=== PATIENT | female | born 1980 | race Caucasian/White ===

== ENCOUNTER 2017-05-21 11:06 | Emergency (ER) | payer OTHER ==
[~2017-05-21] VITALS: Ht 165.1 cm; Wt 112.0 kg
[~2017-05-21 11:06] MED LIST: GABA300C5 PO; IBUP-232 PO; LISI-519 PO; LOVA10TA PO; METF850T PO; NORC5TAB PO; TRAZ100T4 PO
[2017-05-21 11:09] VITALS: BP 154/85; PULSE 105; RESP 16; TEMP 97.8; O2SAT 96
[2017-05-21] MEDS ORDERED: LEVEMIR SQ (11:35)
[2017-05-21] MEDS ORDERED: GEMF600T PO (11:35)
[2017-05-21] MEDS ORDERED: GLIP10TA6 PO (11:35)
[2017-05-21] MEDS ORDERED: SERO200T PO (11:35)
[2017-05-21] MEDS ORDERED: AMLO10TA2 PO (11:35)
[2017-05-21] MEDS ORDERED: TRAZ100T10 PO (11:35)
[2017-05-21] MEDS ORDERED: ALPR.5 PO (11:35)
--- NOTE | 2017-05-21 12:18 | RADRPT ---
EXAM DATE/TIME: 05/21/2017 11:57 [place] COMPARISON: HIP LEFT (AP&LAT 2/3VWS) W AP PELVIS, May 03, 2016, 10:45. INDICATIONS : Right side hip pain. Patient has been diagnosed with bilateral hip dysplasia. MEDICAL HISTORY : Hypercholesterolemia. Hyperparathyroidism. Ulcers. Asthma. Bialteral hip dysplasia. Diabetic. SURGICAL HISTORY : Cholecystectomy. section. Tubal ligation. ENCOUNTER: Initial ACUITY: 3 days PAIN SCORE: 7/10 LOCATION: Right hip FINDINGS: Again, chronic changes related to the patient's known bilateral congenital hip dysplasia (left worse than right) are stable. Foreign body again overlies the mid pelvis and is stable. No acute fracture i s noted. CONCLUSION: 1. No significant change in the appearance of the chronic bilateral congenital hip dysplasia (left wo rse than right). 2. No acute fracture or dislocation. Kevin Avilez MD on May 21, 2017 at 12:13 Board Certified Radiologist. This report was verified electronically.
[2017-05-21] MEDS ORDERED: ORPHENADRINE INJ 60 MG/2 ML AMP IM ONE (12:30)
[2017-05-21] MEDS ORDERED: KETOROLAC TROMETHAMINE 60 MG/2 ML (IM) VIAL IM ONE (12:30)
--- NOTE | 2017-05-21 12:31 | PD ---
HPI . Hip pain (Delmis Ruth) Chief Complaint: Pain: Acute or Chronic Time Seen by Provider: 11:17 (Delmis Ruth) Time Seen by Provider: 11:17 (Andrea Amaral MD) Travel History International Travel<30 days: No Contact w/Intl Traveler<30days: No Traveled to known affect area: No (Delmis Ruth) History of Present Illness HPI 36-year-old female presents emergency department for evaluation of right hip pain. She denies any falls, traumas, injuries. Patient states she has history of hip dysplasia and occasionally has hip pain. Patient states the pain originates in the posterior aspect of the hip and radiates down the right leg. Patient states when she walks she feels like her hip joint is popping in and out. Patient has any fevers, chills, chest pain, shortness of breath, abdominal pain, nausea, vomiting, diarrhea. (Delmis Ruth) PFSH Past Medical History Hx Anticoagulant Therapy: No Asthma: Yes Anxiety: Yes Depression: Yes Cardiovascular Problems: No High Cholesterol: Yes Diabetes: Yes Patient Takes Glucophage: Yes (05-21-17 0800) Diminished Hearing: No Endocrine: No Gastrointestinal Disorders: Yes (HX ULCER) Genitourinary: No Hiatal Hernia: No Hypertension: Yes Immune Disorder: No Neurologic: No Psychiatric: Yes (OCD,ANXIETY DEPRESSION) Reproductive: No Respiratory: No Immunizations Current: Yes Tetanus Vaccination: > 5 Years Influenza Vaccination: No ?: Not : 2 Para: 2 Tubal Ligation: Yes (Delmis Ruth) Past Surgical History Abdominal Surgery: Yes (NATHANIEL) Body Medical Devices: ESSURE IN/OUT, COIL REMAINING Section: Yes Cholecystectomy: Yes Gynecologic Surgery: Yes (C SECTION X 2) Pacemaker: No Other Surgery: Yes (Delmis Ruth) Social History Alcohol Use: No Tobacco Use: No (QUIT OCTOBER 2011) Substance Use: No (Delmis Ruth) Allergies-Medications (Allergen,Severity, Reaction): Coded Allergies: No Known Allergies (Verified Adverse Reaction, Unknown, 05/21/17) Reported Meds & Prescriptions Reported Meds & Active Scripts Active Reported Xanax (Alprazolam) 0.5 Mg Tab 0.5 Mg PO Q8H PRN Levemir Inj (Insulin Detemir) 1,000 unit/ 10 ML Vial 15 Units SQ BID Do not mix with any other Insulin. Amlodipine (Amlodipine Besylate) 10 Mg Tab 10 Mg PO DAILY Seroquel (Quetiapine Fumarate) 200 Mg Tab 200 Mg PO HS Glipizide 10 Mg Tab 10 Mg PO BIDAC Take 30 minutes before a meal Trazodone (Trazodone HCl) 100 Mg Tablet 100 Mg PO HS Gabapentin 300 Mg Cap 300 Mg PO BID Metformin (Metformin HCl) 850 Mg Tab 850 Mg PO TIDPC With meals (Andrea Amaral MD) Review of Systems Except as stated in HPI: all other systems reviewed are Neg (Delmis Ruth) Physical Exam Narrative GENERAL: Well-nourished, well-developed 36-year-old female patient in no acute distress. Nontoxic appearing. SKIN: Focused skin assessment warm/dry. HEAD: Normocephalic. Atraumatic. EYES: No scleral icterus. No injection or drainage. NECK: Supple, trachea midline. No JVD or lymphadenopathy. CARDIOVASCULAR: Regular rate and rhythm without murmurs, gallops, or rubs. Pedal pulses +2 bilaterally. RESPIRATORY: Breath sounds equal bilaterally. No accessory muscle use. GASTROINTESTINAL: Abdomen soft, non-tender, nondistended. MUSCULOSKELETAL: Full range of motion in right lower extremity. No recent deformity, ecchymosis, erythema, cyanosis, or edema. (Delmis Ruth) Data Data Last Documented VS Vital Signs Date Time Temp Pulse Resp B/P (MAP) Pulse Ox O2 Delivery O2 Flow Rate FiO2 05/21/17 11:09 97.8 105 16 154/85 (108) 96 (Andrea Amaral MD) Orders Orders Hip, Uni(Ap&Lat) W Ap Pelvis (05/21/17 11:41) Ketorolac Inj (Toradol Inj) (05/21/17 12:30) Orphenadrine Inj (Norflex Inj) (05/21/17 12:30) Ed Discharge Order (05/21/17 12:32) (Andrea Amaral MD) MDM Medical Decision Making Medical Screen Exam Complete: Yes Emergency Medical Condition: Yes Differential Diagnosis Differential diagnoses include but are not limited to contusion, muscular strain , sciatica, hip pain Narrative Course 36-year-old female presents emergency department for evaluation of right hip pain that radiates down her right leg. Patient states it feels like it is popping in and out when she walks. Patient requests an x-ray. X-ray of the right hip was ordered. X-ray of the right hip shows a general hip dysplasia, no acute fracture or dislocation. There is no obvious deformity, ecchymosis, cyanosis, erythema. Patient denies any traumas, falls or injuries. Patient was given an IM injection of Toradol and Norflex and discharged home with instructions to return the emergency Department with any worsening condition but otherwise follow up with primary care. Last Impressions Hip and Pelvis X-Ray 05/21/17 1141 Signed Impressions: Service Date/Time: Sunday, May 21, 2017 11:57 - CONCLUSION: 1. No significant change in the appearance of the chronic bilateral congenital hip dysplasia (left worse than right). 2. No acute fracture or dislocation. Kevin Avilez MD (Delmis Ruth) Diagnosis Primary Impression: Right hip pain Referrals: Primary Care Physician Patient Instructions: General Instructions, Hip Pain (ED) Additional Instructions: Please return to emergency department if your symptoms return or worsen. Follow up with your primary care provider. Disposition: 01 DISCHARGE HOME Condition: Stable Delmis Ruth May 21, 2017 12:31 Andrea Amaral MD May 21, 2017 13:34
== END 2017-05-21 12:47 | disposition home or self-care (01) ==
LOC: PHEFT 11:06
DX: Q65.89 Other specified congenital deformities of hip (principal); M25.551 Pain in right hip
CPT/HCPCS: 73502; 96372; 99284; J1885; J2360